=== PATIENT | female | born 1955 | race African-American/Black ===

== ENCOUNTER → 2017-01-05 | Outpatient (CLI) | payer OTHER ==
[~2017-01-05] MED LIST: ADVAIR 1001 DISK W/D PO; ALBUTEROL17 GM INH; ATARAX PO; PREDNISONE PO; RHINOCORT AQUA8.6 GM; ZYRTEC PO; [UNRECOGNIZED DRUG - OTHER] PO
--- NOTE | ~2017-01-05 | MY29 ---
[facility] A Service of [facility] RADIOLOGY TEXT RESULTS PATIENT: DARRIAN HALL LOCATION: [facility] : 51 UNIT #: [id number] AGE: [address]: Josefina Olivares MD SEX: F ORDER DR: [id number] [facility] [address] [place], [place] [address] [id number] O MR#: [id number] Acc #: [id number] NAME: ESE HALLLAURA : 1955 SEX: F STUDY DATE/TIME: 01/05/2017 10:55 UNIT: [facility] ROOM: STUDY DESCRIPTION: MY STEVEN SCREENING W/ CAD BILAT Attending Physician: Josefina Olivares M.D. Ordering Physician: Josefina Olivares M.D. Primary Care Physician: Josefina Olivares M.D. MEDICAL IMAGING REPORT This report is preliminary unless electronic signature is present EXAM Digital screening mammogram, 01/05/2017, [facility]. HISTORY 61-year-old woman; previous right breast biopsy. Positive family history, niece, premenopausal. Annual screening. COMPARISON Comparison mammograms date to 05/02/2006, with most recent 03/29/2015. FINDINGS Digital imaging of each breast was completed utilizing a two-view examination of each breast in craniocaudal and mediolateral-oblique projections. Review and interpretation of digital mammograms include a second review in conjunction with FDA-approved CAD device. There is a normal parenchymal presentation bilaterally consistent with the patient's age. There are no breast masses imaged and no parenchymal asymmetry is visualized. There are no suspicious microcalcifications and I see no focal architectural disturbance. IMPRESSION Negative screening digital mammogram. One-year followup recommended. Patients over the age of 40 are entered into a reminder system with target due date for the next mammogram. A result letter will also be sent to the patient. BIRADS: 1 Negative Dictated by... Humza Michelle M.D. [facility] A Service [facility] RADIOLOGY TEXT RESULTS PATIENT: DARRIAN HALL LOCATION: [facility] #: [id number] : 51 UNIT #: [id number] AGE: [address]: Josefina Olivares MD SEX: F ORDER DR: THIS IS AN ELECTRONICALLY VERIFIED REPORT Humza Michelle M.D. at 01/06/2017 3:01 PM Dionte TD: 01/05/2017 17:17 JOB #: [id number] MEDICAL IMAGING REPORT Page 1 of 1 COPY
== END | disposition home or self-care (01) ==
LOC: CWCC 12-05 11:00
DX: Z12.31 Encounter for screening mammogram for malignant neoplasm of breast (principal); Z80.3 Family history of malignant neoplasm of breast; M85.80 Other specified disorders of bone density and structure, unspecified site
CPT/HCPCS: G0202

== ENCOUNTER → 2017-02-22 | Outpatient (CLI) | payer OTHER ==
--- NOTE | ~2017-02-22 | BD1 ---
[facility] A Service of [facility] RADIOLOGY TEXT RESULTS PATIENT: DARRIAN HALL LOCATION: [facility] : 51 UNIT #: [id number] AGE: [address]: Annette Jordan APRN SEX: F ORDER DR: [id number] [facility] [address] [place], [place] [address] [id number] O MR#: [id number] Acc #: [id number] NAME: DARRIAN HALL : 1955 SEX: F STUDY DATE/TIME: 02/22/2017 10:07 UNIT: [facility] ROOM: STUDY DESCRIPTION: Dexa Bone Dens 1+ Site Attending Physician: Annette Jordan A.P.R.N. Referring Physician: Annette Jordan A.P.R.N. Ordering Physician: Annette Jordan A.P.R.N. Primary Care Physician: Josefina Olivares M.D. MEDICAL IMAGING REPORT This report is preliminary unless electronic signature is present EXAM DXA scan, 02/22/2017. HISTORY Status post menopause with no hormone replacement therapy. Osteopenia. Family history of breast carcinoma. Arthritis. Hypertension with blood pressure medication for 3 years. Smoking history for 5 years. FINDINGS Bone mineral density in the lumbar spine from L1 through L4 is 1.03 g/cm2 which is 1.1 standard deviations below the mean when compared to the young adult reference population which is characteristic of osteopenia. This is 0.7 standard deviations above the mean when compared to the age-matched population. Compared with 12/26/2013, there has been a decrease in bone mineral density in the lumbar spine of 1.5%. Bone mineral density in the left hip was a 1.232 g/cm2 which is 1.3 standard deviations above the mean when compared to the young adult reference population which is within the range of normal. This is 2.2 standard deviations above the mean when compared to the age-matched population. Compared with 12/26/2013, there has been an increase in bone mineral density in the left hip of 5.1%. IMPRESSION Bone mineral density in the lumbar spine characteristic of osteopenia and within the left hip within the range of normal. Compared with 12/26/2013, there has been a decrease in bone mineral density in the lumbar spine and an increase in bone mineral density in the left hip. Dictated by... Mark Koo M.D. THIS IS AN ELECTRONICALLY VERIFIED REPORT [facility] A Service of [facility] RADIOLOGY TEXT RESULTS PATIENT: DARRIAN HALL LOCATION: [facility] : 51 UNIT #: [id number] AGE: [address]: Annette Jordan APRN SEX: F ORDER DR: Mark Koo M.D. at 02/23/2017 7:27 AM TONE/cirilo TD: 02/22/2017 15:20 JOB #: [id number] MEDICAL IMAGING REPORT Page 1 of 1 COPY
== END | disposition home or self-care (01) ==
LOC: CWCC 09:53
DX: M85.80 Other specified disorders of bone density and structure, unspecified site (principal); M85.88 Other specified disorders of bone density and structure, other site
CPT/HCPCS: 77080